=== PATIENT | female | born 1980 | race Two or more races ===

== ENCOUNTER 2022-08-01 07:49 | Outpatient (CLI) | payer OTHER | END 2022-08-01 08:07 | disposition home or self-care (01) | LOC: RX STUDY 07:49 | PROVIDERS: ATTEND Internal Medicine Gastroenterology | DX: R13.19 Other dysphagia (principal) ==

== ENCOUNTER 2022-11-29 11:15 | Outpatient (CLI) | payer OTHER | END 2022-11-29 11:25 | disposition home or self-care (01) | LOC: SONOGRAMA 11:15 | PROVIDERS: ATTEND Specialist | DX: R10.9 Unspecified abdominal pain (principal) ==